=== PATIENT | male | born 1995 | race Caucasian/White ===

== ENCOUNTER 2021-02-10 08:12 | Observation (INO) | payer OTHER, SELFPAY ==
[2021-02-10] VITALS (11 sets, daily range): BP systolic 119–154; BP diastolic 72–88; PULSE 54–97; RESP 10–17; TEMP 36.4–37.1; O2SAT 96–100; BMI 27.1
--- NOTE | 2021-02-10 | PATH_ITS ---
[facility] Accession Number: [id number] . 01 Material submitted: . appendix - APPENDIX . 02 Diagnosis: Appendix, Appendectomy: Acute appendicitis and serositis. V 02/15/2021 0945 Local . 02 Electronically signed: . Hui Phan MD, Pathologist NPI- [id number] . 01 Gross description: . The specimen is received in formalin, labeled appendix and consists of a 7.0 cm in length by 1.2 cm in diameter vermiform appendix with attached benavides-yellow lobulated mesoappendix measuring 5.5 x 2.0 x 2.0 cm. The serosa is benavides-pink and smooth with purulent exudate adherent to the tip. Sectioning reveals a benavides mucosa and a lumen measuring 0.5 cm in diameter. Script Supervisor sections are submitted to include the margin (blue), central cross-sections and bisected tip in cassettes A1-A2. (EA:[id number]) /MRV 02/14/2021 1515 Local . 02 Pathologist provided ICD-10: K35.80 . 02 CPT . 699213 Performed at: 01 [facility] [address] [facility], [place], [place] [id number] MD Geoffrey Blas MD Phone: [phone] Performed at: 02 [facility] [address] [place], [place] [id number] MD Zita Wyatt MD Phone: [phone]
[2021-02-10 08:36] LABS: Add Manual Diff / Slide Review NO; Basophils Absolute Auto 0 /uL (0-100); Basophils Percent Auto 0.7 % (0-2); Eosinophils Absolute Auto 300 /uL (0-450); Eosinophils Percent Auto 4.1 % (2-4); Hematocrit 46.1 % (41-53); Lymphocytes Absolute Auto 2000 /uL (1100-4500); Lymphocytes Percent Auto 29.7 % (25-40); Mean Corpuscular HGB Conc 34.6 % (30-36); Mean Corpuscular Hemoglobin 28.2 PG (26-34); Mean Corpuscular Volume 81.6 fL (80-100); Monocytes Absolute Auto 900 /uL (0-900); Monocytes Percent Auto 13.3 % (3-14); Neutrophils Absolute Auto 3400 /uL (1500-7000); Neutrophils Percent Auto 52.2 % (50-75); Platelet Count 175 X10^3/uL (150-400); Red Blood Cell Count 5.65 X10^6/uL (4.5-5.9); Red Cell Distribution Width 12.6 % (11.6-14.8); White Blood Cell Count 6.6 X10^3/uL (4.5-11.0)
[2021-02-10 08:38] LABS: INR 1.1 (0.9-1.3); Prothrombin Time 12.2 SECONDS (10.1-12.7)
--- NOTE | 2021-02-10 08:39 | ED.GENADULT ---
HPI - General Adult General Chief complaint: Abdominal Pain Stated complaint: LRQ abd pain Time Seen by Provider: 02/10/21 08:38 Source: patient Mode of arrival: Ambulatory Limitations: no limitations History of Present Illness HPI narrative: Patient is an otherwise healthy 26-year-old male here for evaluation of approximately 12-24 hours of right lower quadrant abdominal pain. He states the symptoms were gradual onset yesterday afternoon. He did state that within the past 48 hours he received his 2nd COVID-19 vaccine. He is active [place]. Is very healthy. Has not had a bowel movement since the onset of the symptoms. Has urinated since the onset of symptoms the states that has not changed any of his discomfort. He has not had any fevers. No nausea vomiting. No testicular pain. Has not tried anything for symptoms prior to arrival. Review of Systems Constitutional Constitutional: Denies fever(s) Cardiovascular Cardiovascular: Denies chest pain and Denies dyspnea Respiratory Respiratory: Denies dyspnea Gastrointestinal Gastrointestinal: Reports abdominal pain, Denies change in bowel habits, Denies constipation, Denies diarrhea, Denies nausea and Denies vomiting Genitourinary Genitourinary: Denies dysuria and Denies testicular pain Genitourinary: Denies dysuria Musculoskeletal Musculoskeletal: Denies arthralgias and Denies myalgias Integumentary/Breasts Skin/Breast: Denies rash Neurologic Neurologic: Denies behavioral changes Psychiatric Psychiatric: Denies behavioral changes Hematologic/Lymphatic On Anticoagulants: No Allergic/Immunologic Allergic/Immunologic: Denies urticaria Patient History Medical History Healthy adult Social History marital status: lives independently: Yes Exam Initial Vital Signs Initial Vital Signs: Vital Signs Pulse Rate 97 H 02/10/21 08:17 Blood Pressure 154/88 H 02/10/21 08:17 Pulse Oximetry 99 02/10/21 08:17 Const General: cooperative and comfortable Limitations: mental status not altered HENMT Head: normal to inspection and normocephalic Resp Effort & Inspection: normal respiratory effort Auscultation: clear to auscultation bilaterally Cardio Rate: regular rate Rhythm: regular rhythm GI Inspection: non-distended Palpation: soft and tender (Right lower quadrant with rebound) Back/Spine/Pelvis Back: No CVA tenderness Skin Lesions: no lesions Rashes: no rashes Neuro General: patient alert, patient awake and patient oriented x3 Cognition: normal cognition Speech: speech normal Extrem General: normal to inspection and capillary refill normal Psych Appearance: grossly normal and well kempt Course Orders Ordered: ED Orders 02/10/21 08:25 Complete Blood Count AUTO DIFF Stat Comprehensive Metabolic Panel Stat Lipase Stat Partial Thromboplastin Time Stat Prothrombin Time INR Stat 02/10/21 08:39 CT abdomen pelvis w con Stat 02/10/21 09:23 Consult to General Surgery Stat 02/10/21 09:30 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 Result diagrams: 02/10/21 08:25 02/10/21 08:25 Labs: Lab Results 02/10/21 02/10/21 02/10/21 Range/Units 08:25 08:25 08:25 WBC 6.6 (4.5-11.0) X10^3/uL RBC 5.65 (4.5-5.9) X10^6/uL Hgb 16.0 (13.5-17.5) g/dL Hct 46.1 (41-53) % MCV 81.6 (80-100) fL MCH 28.2 (26-34) PG MCHC 34.6 (30-36) % RDW 12.6 (11.6-14.8) % Plt Count 175 (150-400) X10^3/uL Neut % (Auto) 52.2 (50-75) % Lymph % (Auto) 29.7 (25-40) % [place] % (Auto) 13.3 (3-14) % Eos % (Auto) 4.1 H (2-4) % Baso % (Auto) 0.7 (0-2) % Neut # (Auto) 3400 (8849-6751) /uL Lymph # (Auto) 2000 (4730-4771) /uL [place] # (Auto) 900 (0-900) /uL Eos # (Auto) 300 (0-450) /uL Baso # (Auto) 0 (0-100) /uL PT 12.2 (10.1-12.7) SECONDS INR 1.1 (0.9-1.3) APTT 35 (26.4-36.2) SECONDS Sodium 140 (137-145) mmol/L Potassium 4.2 (3.4-5.1) mmol/L Chloride 103 (98-107) mmol/L Carbon Dioxide 30 (22-32) mmol/L BUN 14 (9-20) mg/dL Creatinine 1.11 (0.66-1.25) mg/dL Estimated GFR > 60.0 (>60) mL/min BUN/Creatinine Ratio 12.6 (6-22) Glucose 96 (70-100) mg/dL Calcium 10.0 (8.4-10.2) mg/dL Total Bilirubin 0.6 (0.2-1.3) mg/dL AST 25 (17-59) IU/L ALT 33 (<50) IU/L Alkaline Phosphatase 54 (38-126) U/L Total Protein 7.5 (6.3-8.2) g/dL Albumin 4.6 (3.5-5.0) g/dL Globulin 2.9 (1.7-4.1) g/dL Albumin/Globulin Ratio 1.6 (1.0-2.8) Lipase 52 (23-300) U/L Urine Dip Bedside Urine Glucose Negative Bedside Urine Bilirubin - Negative Bedside Urine Ketone - Negative Urine Specific [place] 1.020 Bedside Urine Occult Blood - Negative Bedside Urine pH 7.0 Bedside Urine Protein - Negative Bedside Urine Urobilinogen - Negative Bedside Urine Nitrite - Negative Bedside Urine Leukocytes - Negative Esterase Point of care testing: Urine Dip Bedside Urine Glucose Negative Bedside Urine Bilirubin - Negative Bedside Urine Ketone - Negative Urine Specific [place] 1.020 Bedside Urine Occult Blood - Negative Bedside Urine pH 7.0 Bedside Urine Protein - Negative Bedside Urine Urobilinogen - Negative Bedside Urine Nitrite - Negative Bedside Urine Leukocytes - Negative Esterase Imaging Data CT scan - abdomen/pelvis: Radiologist's Impression: [address] [id number] Scan ReportSigned Patient: Srikanth Ramirez CMR#: [id number]: 1995Acct:[id number]/Sex: 26 / MDate of Service: 02/10/21Loc: EDAccession Number: [id number] Procedure: CT abdomen pelvis w con Ordering Provider: Gurpreet Perez D.O. PROCEDURE: CT ABDOMEN PELVIS W CON INDICATIONS: Right lower quadrant abdominal pain TECHNIQUE: After the administration of intravenous contrast, 5 mm thick sections acquired from the diaphragm to the symphysis. 5 mm coronal and sagittal reformats were acquired. For radiation dose reduction, the following was used: automated exposure control, adjustment of mA and/or kV according to patient size. COMPARISON: None. FINDINGS: Image quality: Excellent. ABDOMEN: Lung bases: Lung bases are clear. Heart size is normal. Solid organs: The liver is normal. Gallbladder unremarkable. No intrahepatic or extrahepatic biliary ductal dilatation. Enlarged spleen measuring 14 centimeters maximum craniocaudal dimension. Kidneys and adrenal glands unremarkable. Pancreas is within normal limits. Peritoneum and bowel: Dilated and fluid-filled appendix with wall thickening, mucosal hyperenhancement, and adjacent inflammatory changes. Findings consistent with appendicitis. Remaining bowel unremarkable. Nodes and vessels: No retroperitoneal or mesenteric adenopathy by size criteria. Aorta and inferior vena cava are normal in size. Miscellaneous: No ventral hernias. PELVIS: Genitourinary: Bladder wall thickness is normal. Miscellaneous: No inguinal hernias or adenopathy. Bones: No suspicious bony lesions. No vertebral body compression fractures. IMPRESSION: Findings indicative of acute appendicitis. Mildly enlarged spleen, nonspecific. Findings were discussed with Dr. Gurpreet Perez at 9:20 a.m. on 02/10/2021. Dictated by: Ashish Hidalgo M.D. on 02/10/2021 at 9:14 Approved by: Ashish Hidalgo M.D. on 02/10/2021 at 9:23 MDM Narrative Medical decision making narrative: Patient is a very healthy male. Last oral intake was at 0700 hours this morning and it was [address] scan shows acute appendicitis. His labs are unremarkable. No signs of perforation. Does not have an acute abdomen. Discussed the case with Dr. Aguilar on-call with General surgery who recommended IV antibiotics and will come to evaluate the patient and take the operating room. I did discuss CT findings with the patient. Also discussed with him the incidental finding of the splenomegaly and told him he needed to contact his primary provider for follow-up with this and that it was unrelated to his appendicitis today. He expressed understanding and agreement. Discharge Plan Departure Patient Disposition: Admitted as Observation Clinical Impression: Acute appendicitis, Splenomegaly
[2021-02-10 08:40] LABS: PTT Partial Thromboplastin Tim 35 SECONDS (26.4-36.2)
[2021-02-10 08:43] LABS: Alanine Aminotransferase 33 IU/L (<50); Albumin 4.6 g/dL (3.5-5.0); Albumin Globulin Ratio 1.6 (1.0-2.8); Alkaline Phosphatase 54 U/L (38-126); Aspartate Aminotransferase 25 IU/L (17-59); BUN Creatinine Ratio 12.6 (6-22); Bilirubin Total 0.6 mg/dL (0.2-1.3); Blood Urea Nitrogen 14 mg/dL (9-20); Carbon Dioxide 30 mmol/L (22-32); Chloride 103 mmol/L (98-107); Estimated Glomerular Filt Rate > 60.0 mL/min (>60); Globulin 2.9 g/dL (1.7-4.1); Glucose 96 mg/dL (70-100); HEMOLYSIS < 15 (0-50); Lipase 52 U/L (23-300); Potassium 4.2 mmol/L (3.4-5.1); Sodium 140 mmol/L (137-145); Total Protein 7.5 g/dL (6.3-8.2)
[2021-02-10] MEDS: SODIUM CHLORIDE 0.9% 1,000 ML 125 ML IV (09:44)
[2021-02-10] MEDS: PIPERACILLIN-TAZO 3.375 GM/50 ML FROZ.PIGGY IV (09:44)
[2021-02-10 10:22] LABS: COVID19 - ADMIT (NP swab/PCR) Negative (Negative)
--- NOTE | 2021-02-10 10:40 | P.HP_ITS ---
History of Present Illness History of Present Illness Date Patient Seen: 02/10/21 Time Patient Seen: 10:41 Chief complaint: LRQ abd pain Narrative: Acute appendicitis 26-year-old male with 1 day of abdominal pain coming focused in the right lower quadrant today presented to the emergency room. CT abdomen pelvis demonstrates acute appendicitis without abscess or free fluid. At admission afebrile, WBC 7 remainder of labs unremarkable. No nausea or vomiting. Received Zosyn 3.375 g in the emergency room and IV fluids. No prior abdominal surgery. Patient History Medical History Healthy adult Family & Social History Social History: lives independently Yes Safety & Behavioral: Feels Safe in Current Yes Environment Been Physically Hurt or No Threatened By a Person Meds Home Medications and Allergies Home Medications Medication Instructions Recorded Confirmed Type No Known Home Medications 02/10/21 02/10/21 History Allergies Allergy/AdvReac Type Severity Reaction Status Date / Time No Known Drug Allergies Allergy Verified 02/10/21 10:40 Review of Systems Review of Systems ROS: Yes All systems reviewed with the patient and are negative except as other nieves documented Exam Vital Signs (past 8 hours): - 02/10/21 08:17 02/10/21 08:18 02/10/21 08:30 Temperature 97.6 F Pulse Rate 97 H 91 H 79 Respiratory Rate 16 Blood Pressure 154/88 H 154/88 H Pulse Oximetry 99 97 99 Oxygen Delivery Method Room Air Narrative Exam Narrative: General-no acute distress, adult male HEENT-moist mucous membranes, no scleral icterus Neck-supple, no lymphadenopathy Chest- non labored respirations, clear to auscultation bilaterally Cardiac-regular rate no peripheral edema Abdomen-soft, tender to palpation right lower quadrant no peritonitis Extremities-warm, well perfused Neurological-alert and oriented, no focal deficits Objective Labs Result Diagrams: 02/10/21 08:25 02/10/21 08:25 Labs: Laboratory Results - last 24 hr 02/10/21 02/10/21 02/10/21 08:25 08:25 08:25 WBC 6.6 RBC 5.65 Hgb 16.0 Hct 46.1 MCV 81.6 MCH 28.2 MCHC 34.6 RDW 12.6 Plt Count 175 Neut % (Auto) 52.2 Lymph % (Auto) 29.7 [place] % (Auto) 13.3 Eos % (Auto) 4.1 H Baso % (Auto) 0.7 Neut # (Auto) 3400 Lymph # (Auto) 2000 [place] # (Auto) 900 Eos # (Auto) 300 Baso # (Auto) 0 PT 12.2 INR 1.1 APTT 35 Sodium 140 Potassium 4.2 Chloride 103 Carbon Dioxide 30 BUN 14 Creatinine 1.11 Estimated GFR > 60.0 BUN/Creatinine Ratio 12.6 Glucose 96 Calcium 10.0 Total Bilirubin 0.6 AST 25 ALT 33 Alkaline Phosphatase 54 Total Protein 7.5 Albumin 4.6 Globulin 2.9 Albumin/Globulin Ratio 1.6 Lipase 52 SARS-CoV-2 (PCR) 02/10/21 09:30 WBC RBC Hgb Hct MCV MCH MCHC RDW Plt Count Neut % (Auto) Lymph % (Auto) [place] % (Auto) Eos % (Auto) Baso % (Auto) Neut # (Auto) Lymph # (Auto) [place] # (Auto) Eos # (Auto) Baso # (Auto) PT INR APTT Sodium Potassium Chloride Carbon Dioxide BUN Creatinine Estimated GFR BUN/Creatinine Ratio Glucose Calcium Total Bilirubin AST ALT Alkaline Phosphatase Total Protein Albumin Globulin Albumin/Globulin Ratio Lipase SARS-CoV-2 (PCR) Negative Assessment & Plan Assessment and plan (1) Acute appendicitis: Status: Acute Assessment & Plan narrative: 26-year-old healthy male with acute appendicitis. I reviewed his laboratory studies and his CT abdomen pelvis which demonstrates acute appendicitis without abscess or free fluid. We discussed the nature of acute appendicitis and its management both surgical and nonsurgical management. I recommended that we proceed with a laparoscopic appendectomy. We discussed technical details of the operation. Operative risks including bleeding, infection, damage to surrounding structures,conversion to open, hernia formation, were discussed. His questions have been answered and he he is in agreement with this plan. Quality [facility] - Admit Advanced Care Plan / Current Medications Measures: #47 ? Advanced Care Plan Clinician documentation instruction: document at admission. [] I confirmed that the patient's Advance Care Plan is present, code status is documented, or surrogate decision maker is listed in the patient?s medical record. [SATISFIES [facility] PERFORMANCE] If Yes, Stop Here [] The patient?s Advance Care plan is not present because: (select) [[facility] PERFORMANCE EXCEPTION/EXCLUSION] [] I confirmed today that the patient does not wish or was not able to name a surrogate decision maker or provide an Advance Care Plan. [] Hospice care is currently being provided or has been provided this calendar year [] I did NOT confirm today the presence of an Advance Care Plan or surrogate decision maker documented within the patient's medical record. [DOES NOT SATISFY [facility]IPS PERFORMANCE] #130 - Documentation of Current Medications in the Medical Record Clinician documentation instruction: use macro the first time you see a patient. [] I have utilized all available immediate resources to obtain, update, or review the patient?s current medications. [SATISFIES [facility]IPS PERFORMANCE] If Yes, Stop Here [] The patient is not eligible for medication reconciliation; the patient is in an emergent medical situation where delaying treatment would jeopardize the patient?s health. [MIPS PERFORMANCE EXCEPTION/EXCLUSION] [] I did NOT confirm, update or review the patient's current list of medications today. [DOES NOT SATISFY MIPS PERFORMANCE] MIPS - CL Central Venous Catheter Placement Measure: #76 ? Prevention of Central Venous Catheter (CVC) ? Related Bloodstream Infection Clinician documentation instruction: use macro every time you place a central line. [] All elements of Maximal Sterile Barrier Technique, including hand hygiene, skin prep, and sterile ultrasound technique (if used) were followed. [SATISFIES MIPS PERFORMANCE] If Yes, Stop Here [] If ?No?, the medical reason all elements were NOT used for medical reason [] (ex. emergent condition). [] Maximal Sterile Barrier Technique was not followed, no reason provided [DOES NOT SATISFY MIPS PERFORMANCE] MIPS - DC Heart Failure Measures: #5 - Heart Failure (HF): Angiotensin-Converting Enzyme (SUKHJINDER) Inhibitor or Angiotensin Receptor Alyce (ARB) Therapy for Left Ventricular Systolic Dysfunction (LVSD) and #8 - Heart Failure (HF): Beta-Alyce Therapy for Left Ventricular Systolic Dysfunction (LVSD) Clinician documentation instruction: use macro at every CHF discharge. [] The patient has current or prior documentation of left ventricular ejection fraction (LVEF) less than 40%, or moderate or severely depressed left ventricular systolic function. Answer both: [SATISFIES MIPS PERFORMANCE] [] The patient was prescribed or already taking an Angiotensin-Converting Enzyme (SUKHJINDER) Inhibitor, or Angiotensin Receptor Alyce (ARB). [] The patient was prescribed or already taking a beta-alyce. If Yes to Both, Stop Here [] Patient not prescribed/taking: [MIPS PERFORMANCE EXCEPTION/EXCLUSION] [] SUKHJINDER or ARB for medical/patient/system reason(s) including [] (ex. allergy, intolerance, contraindication) [] Beta-alyce for medical/patient/system reason(s) including [] (ex. allergy, intolerance, contraindication) [] Patient not prescribed/taking: [DOES NOT SATISFY MIPS PERFORMANCE] [] SUKHJINDER or ARB, no reason given [] Beta-alyce, no reason given
[2021-02-10] MEDS: LACTATED RINGERS 1,000 ML 42 ML IV ×2 (10:53→12:24)
--- NOTE | 2021-02-10 12:08 | SUR.OPER ---
Supine on padded OR bed, head on pillow, right arm secured on padded arm boards at <90 degrees abduction, left arm padded and tucked at side, legs uncrossed, safety belt at thigh, tape over blanket over lower legs.
[2021-02-10] MEDS: BUPIVACAINE 0.25% (PF) VIAL 30 ML INJ (12:19)
--- NOTE | 2021-02-10 13:00 | P.OP_ITS ---
Operative Date/Time/Diagnoses Date of procedure: 02/10/21 Time of procedure: 13:00 Pre-op diagnosis: Acute appendicitis Post-op diagnosis: same Procedure & Clinicians Procedure: Laparoscopic appendectomy Same procedure as scheduled: Yes Indications: 26-year-old male and right lower quadrant pain x1 day CT demonstrates acute appendicitis without abscess or free air. Surgeon: Balta Aguilar Click Yes if Unassisted: Yes Anesthesia Type: General Operative Notes Findings: Acute non perforated appendicitis Specimen(s): other (Appendix) Estimated Blood Loss (mL): 20 Procedure in detail: Patient was brought to the operating room placed supine on the table. Bilateral lower extremity compression devices were applied. Anesthesia was induced and they intubated with an endotracheal tube. They received 3.375 g of Zosyn prior to skin incision. The left arm was tucked and appropriately padded. They were prepped and draped in sterile fashion. Time-out was performed. An infraumbilical incision was made the umbilical stalk was grasped and elevated and incision was made and the abdomen was entered at raumatically. A 12 mm balloon trocar was then placed through the incision and pneumoperitoneum of 14 mm Hg was established. The scope was then inserted and the abdomen inspected, there was no evidence of injury upon entry. Two 5 mm ports were placed under direct visualization, one in the left lower quadrant and second in the lower midline. A thorough laparoscopic evaluation was performed inspecting all four quadrants. The patient was then tilted right side up. The small bowel was then swept to the upper aspect of the abdomen. The tenie were followed to the base of the cecum where the appendix was identified. The appendix was was mobilized from its lateral attachments. It was acutely inflamed but not perforated. The appendix was grasped and a window within the mesentery was made at the base of the appendix using the [place] dissector with care to avoid injuring the cecum. The mesoappendix was then divided using the endo-stapler with a staple length of 2.5 mm-white load. The mesenteric staple line was inspected for hemostasis. The appendix was then amputated flush at the cecum using the endo-stapler blue load. The specimen was retrieved using a endoscopic retrieval bad through the 10 mm infra-umbilical port. The right paracolic gutter and the pouch of C[place]ar were irrigated The 5 mm ports were then removed under direct visualization. The umbilical fascial incision was closed with 0 Vicryl in a figure-eight fashion. The skin wounds were irrigated and closed with 4-0 Monocryl followed by the application of Dermabond. Sponge instrument count at the end of the operation was correct. The patient tolerated procedure well was extubated and transferred to the postoperative care unit in stable condition. Complications: none Post-operative Condition: stable Disposition: same day surgery
[2021-02-10] MEDS: fentaNYL 100 MCG/2 ML INJ IV (13:03)
[2021-02-10] MEDS: OXYCODONE/ACETAMINOPHEN 5/325 TABLET 1 TAB PO (13:04)
--- NOTE | 2021-02-10 13:13 | SUR.PHASEI ---
Pt awoke w/o difficulties, medicated with fentanyl and percocet. Belly soft, no nausea, applesauce tolerated
--- NOTE | 2021-02-10 13:48 | SUR.PHASEII ---
arrived for warehouse order picker, pt left when ready and left in stable condition.
--- NOTE | 2021-02-10 14:25 | SUR.PHASEII ---
late entry: d/c instructions discussed with and pt, both voiced an understanding, abdomen remained soft, lap site c/d/i. Pt dressed with assist from , left unit whn ready and left in stable condition.
== END 2021-02-10 13:55 | disposition home or self-care (01) ==
LOC: ED 09:22 → AC 09:37
PROVIDERS: Admitting Provider Surgery; Emergency Provider Emergency Medicine; Referring Provider Emergency Medicine; Visit Provider Surgery
PROC: 0DTJ4ZZ Resection of Appendix, Percutaneous Endoscopic Approach (ICD-10-PCS; CPT 44970; principal; 2021-02-10 11:30)
DX: K35.80 Unspecified acute appendicitis (principal); Z20.822 Contact with and (suspected) exposure to COVID-19
CPT/HCPCS: 44970; 36415; 74177; 80053; 81003; 83690; 85025; 85610; 85730; 87635; 96365; 99219; 99283; 99284; G0378; J1100; J1885; J2405; J2543; J2704; J3010